=== PATIENT | female | born 1990 | race Hispanic/Latino ===

== ENCOUNTER 2017-12-26 13:09 | Emergency (ER) | payer SELFPAY ==
[2017-12-26 14:59] LABS: Absolute Lymphocytes (CBC) 2.7 K/uL (0.7-4.9); Absolute Monocytes 0.8 K/uL (0.1-1.3); Absolute Neutrophil 10.1 K/uL (1.8-8.0); Basophils % 0.3 % (0-1.3); Eosinophils % 0.7 % (0-4.4); Hematocrit 41.7 % (36.0-45.0); Lymphocytes % 19.7 % (15.3-44.8); MCH 31.3 pg (27.0-35.0); MCV 92.9 fL (80-100); MPV 8.1 fL (7.6-11.3); Monocytes % 6.1 % (3.3-12.3); RBC Red Blood Cell Count 4.49 M/uL (3.86-4.86)
[2017-12-26 15:03] LABS: Bicarbonate 27 mEq/L (21-31); Glucose Level 89 mg/dL (65-120); Potassium 3.8 mEq/L (3.6-5.0); Sodium Level 136 mEq/L (135-145)
[2017-12-26 15:04] LABS: Protime INR 1.01
--- NOTE | 2017-12-26 15:08 | RAD REPORT ---
EXAM DESCRIPTION: CT - Head Brain Wo Cont - 12/26/2017 2:44 pm CLINICAL HISTORY: Headache, hypotension COMPARISON: None. TECHNIQUE: Axial 5 mm thick images of the head were obtained without IV contrast. All CT scans are performed using dose optimization technique as appropriate and may include automated exposure control or mA/KV adjustment according to patient size. FINDINGS: No intracranial hemorrhage, mass, edema or shift of mid-line structures. No acute infarcti on changes seen. No abnormal extra-axial fluid collections. Ventricles are normal. Mastoid air cells and visualized portions of the paranasal sinuses are clear. No acute bony findings. IMPRESSION: Negative non-contrast CT head examination.
[2017-12-26 15:09] LABS: ALT/SGPT 28 IU/L (10-60); AST/SGOT 26 IU/L (10-42); Albumin 4.6 g/dL (3.2-5.5); Alkaline Phosphatase 120 IU/L (42-121); BUN Blood Urea Nitrogen 12 mg/dL (6-20); Bilirubin Direct < 0.1 mg/dL (0-0.2); Bilirubin Total 0.6 mg/dL (0.3-1.2); Creatine Phosphokinase 65 IU/L (22-269); Magnesium 1.7 mg/dL (1.8-2.5); Protein, Total 8.1 g/dL (6.0-8.3)
[2017-12-26 15:13] LABS: CKMB Creatine Kinase MB 1.6 ng/ml (0.3-4.0)
--- NOTE | 2017-12-26 15:20 | RAD REPORT ---
EXAM DESCRIPTION: RAD - Chest Single View - 12/26/2017 2:34 pm CLINICAL HISTORY: Cough, shortness of breath COMPARISON: April 2017 TECHNIQUE: AP portable chest image was obtained 1421 hours . FINDINGS: Lungs are clear. Heart and vasculature are normal. No measurable pleural effusion and no p neumothorax. No gross bony abnormality seen. No acute aortic findings suspected. IMPRESSION: No acute cardiopulmonary process. No significant interval change.
--- NOTE | 2017-12-26 15:30 | EDPHYS ---
Physician Documentation [facility] Name: Chelly Butcher Age: 27 yrs Sex: Female : 1990 Arrival Date: 12/26/2017 Time: 13:12 Bed 6 Private MD: None, None ED Physician Darrian Ryan HPI: 12/26 15:25 This 27 yrs old Female presents to ER via Ambulatory with complaints of yudi Headache, Blood Pressure Problem. 15:25 The patient complains of pain to the forehead, left temporal area and right temporal yudi area. The patient describes the headache as waxing and waning. Onset: The symptoms/episode began/occurred 2 day(s) ago. Associated signs and symptoms: The patient has no apparent associated signs or symptoms. Severity of symptoms: At its worst the pain was mild, in the emergency department the pain is unchanged. Headache History: Denies prior headaches. The symptoms are alleviated by. The patient has not experienced similar symptoms in the past. 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 - Social history:: Smoking status: Patient/guardian denies using tobacco. - Family history:: not pertinent. ROS: 15:25 Constitutional: Negative for fever, chills, and weight loss, Eyes: Negative for injury, yudi pain, redness, and discharge, ENT: Negative for injury, pain, and discharge, Neck: Negative for injury, pain, and swelling, Cardiovascular: Negative for chest pain, palpitations, and edema, Respiratory: Negative for shortness of breath, cough, wheezing, and pleuritic chest pain, Abdomen/GI: Negative for abdominal pain, nausea, vomiting, diarrhea, and constipation, Back: Negative for injury and pain, : Negative for injury, bleeding, discharge, and swelling, MS/Extremity: Negative for injury and deformity, Skin: Negative for injury, rash, and discoloration, Psych: Negative for depression, anxiety, suicide ideation, homicidal ideation, and hallucinations, Allergy/Immunology: Negative for hives, rash, and allergies, Endocrine: Negative for neck swelling, polydipsia, polyuria, polyphagia, and marked weight changes, Hematologic/Lymphatic: Negative for swollen nodes, abnormal bleeding, and unusual bruising. 15:25 Neuro: Positive for headache. Exam: 15:25 Constitutional: This is a well developed, well nourished patient who is awake, alert, yudi and in no acute distress. Head/Face: Normocephalic, atraumatic. Eyes: Pupils equal round and reactive to light, extra-ocular motions intact. Lids and lashes normal. Conjunctiva and sclera are non-icteric and not injected. Cornea within normal limits. Periorbital areas with no swelling, redness, or edema. ENT: Nares patent. No nasal discharge, no septal abnormalities noted. Tympanic membranes are normal and external auditory canals are clear. Oropharynx with no redness, swelling, or masses, exudates, or evidence of obstruction, uvula midline. Mucous membranes moist. Neck: Trachea midline, no thyromegaly or masses palpated, and no cervical lymphadenopathy. Supple, full range of motion without nuchal rigidity, or vertebral point tenderness. No Meningismus. Chest/axilla: Normal chest wall appearance and motion. Nontender with no deformity. No lesions are appreciated. Cardiovascular: Regular rate and rhythm with a normal S1 and S2. No gallops, murmurs, or rubs. Normal PMI, no JVD. No pulse deficits. Respiratory: Lungs have equal breath sounds bilaterally, clear to auscultation and percussion. No rales, rhonchi or wheezes noted. No increased work of breathing, no retractions or nasal flaring. Abdomen/GI: Soft, non-tender, with normal bowel sounds. No distension or tympany. No guarding or rebound. No evidence of tenderness throughout. Back: No spinal tenderness. No costovertebral tenderness. Full range of motion. Skin: Warm, dry with normal turgor. Normal color with no rashes, no lesions, and no evidence of cellulitis. MS/ Extremity: Pulses equal, no cyanosis. Neurovascular intact. Full, normal range of motion. Neuro: Awake and alert, GCS 15, oriented to person, place, time, and situation. Cranial nerves II-XII grossly intact. Motor strength 5/5 in all extremities. Sensory grossly intact. Cerebellar exam normal. Normal gait. Psych: Awake, alert, with orientation to person, place and time. Behavior, mood, and affect are within normal limits. 15:25 Neck: Thyroid: appears normal, no acute changes, Trachea: is midline with no obvious abnormalities, ROM/movement: is normal, no acute changes, Meningeal signs: are not present, Kernig's sign is negative, Brudzinski's sign is negative, Lymph nodes: no appreciated lymphadenopathy. Vital Signs: 13:19 BP 135 / 82; Pulse 69; Resp 16; Temp 98.4(TE); Pulse Ox 99% on R/A; Weight 77.11 kg; iw Height 5 ft. 2 in. (157.48 cm); Pain 5/10; 14:05 BP 132 / 86; Pulse 65; Resp 16 S; Pulse Ox 99% on R/A; Pain 3/10; jl7 14:15 BP 138 / 80 Supine; Pulse 62; Resp 16; Pulse Ox 100% ; jl7 14:17 BP 142 / 83 Sitting; Pulse 62; Resp 16; Pulse Ox 99% ; jl7 14:19 BP 144 / 89 Standing; Pulse 68; Resp 16; Pulse Ox 98% ; jl7 15:09 BP 128 / 73; Pulse 66; Resp 16 S; Pulse Ox 95% on R/A; jl7 15:20 BP 118 / 70; Pulse 64; Resp 18 S; Pulse Ox 100% on R/A; jl7 16:00 BP 110 / 65; Pulse 67; Resp 16; Pulse Ox 96% ; jl7 16:29 BP 124 / 69; Pulse 71; Resp 18; Pulse Ox 100% ; jl7 13:19 Body Mass Index 31.09 (77.11 kg, 157.48 cm) iw MDM: 14:07 Patient medically screened. [facility] 15:25 Data reviewed: vital signs, nurses notes, lab test result(s), EKG, radiologic studies, [facility] CT scan, plain films. 12/26 14:09 Order name: Basic Metabolic Panel; Complete Time: 15: [facility] 12/26 14:09 Order name: BNP; Complete Time: 15: [facility] 12/26 14:09 Order name: CBC with Diff; Complete Time: 15: [facility] 12/26 14:09 Order name: Ckmb; Complete Time: 15: [facility] 12/26 14:09 Order name: CPK; Complete Time: : 12/26 14:09 Order name: LFT's; Complete Time: 15:22 12/26 14:09 Order name: Magnesium; Complete Time: 15:12/26 14:09 Order name: PT-INR; Complete Time: 15:12/26 14:09 Order name: Ptt, Activated; Complete Time: 15:22 12/26 14:09 Order name: Troponin (emerg Dept Use Only); Complete Time: 15:12/26 14:09 Order name: XRAY Chest (1 view); Complete Time: 15:12/26 14:09 Order name: Urine Culture 12/26 15:28 Order name: Urine Dipstick--Ancillary (enter results) 12/26 15:28 Order name: Urine --Ancillary (enter results) 12/26 14:09 Order name: Urine Test (obtain specimen); Complete Time: 14:29 12/26 14:09 Order name: EKG; Complete Time: 14:09 12/26 14:09 Order name: Cardiac monitoring; Complete Time: 14:25 12/26 14:09 Order name: EKG - Nurse/Tech; Complete Time: 14:28 12/26 14:09 Order name: IV Saline Lock; Complete Time: 14:43 12/26 14:09 Order name: Labs collected and sent; Complete Time: 14:43 12/26 14:09 Order name: O2 Per Protocol; Complete Time: 14:29 12/26 14:09 Order name: O2 Sat Monitoring; Complete Time: 14:29 12/26 14:09 Order name: Urine Dipstick-Ancillary (obtain specimen); Complete Time: 14:29 12/26 14:09 Order name: CT Head Brain wo Cont; Complete Time: 15:22 12/26 15:34 Order name: Orthostatics; Complete Time: 15:44 [facility] Administered Medications: 15:49 Drug: Magnesium Sulfate 1 grams Route: IVPB; Infused Over: 1 hrs; Site: right jl7 antecubital; 17:22 Follow up: IV Status: Completed infusion jl7 15:49 Drug: NS 0.9% 1000 ml Route: IV; Rate: 1 bolus; Site: right antecubital; jl7 17:21 Follow up: IV Status: Completed infusion jl7 Disposition: 12/26/17 15:30 Discharged to Home. Impression: Headache, Weakness, Hypomagnesemia, Elevated white blood cell count. - Condition is Stable. - Discharge Instructions: General Headache Without Cause, Hypomagnesemia, Weakness, Fatigue, Near-Syncope, Jnma-da-Knwy, Weakness, Hhak-xh-[id number], General Headache Without Cause, Wyqk-sj-Rjup. - Medication Reconciliation Form, Thank You Letter, Antibiotic Education, Prescription Opioid Use form. - Work release form (12/26/17 17:26). iw - Follow up: Private Physician; When: 2 - 3 days; Reason: Recheck today's complaints, Continuance of care, Re-evaluation by your physician. Follow up: Ivonne Talavera MD; When: 2 - 3 days; Reason: Recheck today's complaints, Continuance of care, Re-evaluation by your physician. Follow up: Derek Nelson MD; When: 2 - 3 days; Reason: Recheck today's complaints, Re-evaluation by your physician. - Problem is new. - Symptoms have improved. Signatures: Dispatcher [employer] Darrian House MD MD cha Williams, Irene, RN RN iw Arnaldo Corado RN RN jl7
--- NOTE | 2017-12-26 15:30 | ER ---
Nurse's Notes [facility] Name: Chelly Butcher Age: 27 yrs Sex: Female : 1990 Arrival Date: 12/26/2017 Time: 13:12 Bed 6 Private MD: None, None Diagnosis: Headache;Weakness;Hypomagnesemia;Elevated white blood cell count Presentation: 12/26 13:16 Presenting complaint: Patient states: has been feeling faint, having low BP readings, iw has happened 3 times over past 2 weeks, today she had an episode of weakness, headache, had BP of 144 today, took anxiety pill today and Aleve for headache. Transition of care: patient was not received from another setting of care. Onset of symptoms was December 26, 2017. Initial Sepsis Screen: Does the patient meet any 2 criteria? No. Patient's initial sepsis screen is negative. Does the patient have a suspected source of infection? No. Patient's initial sepsis screen is negative. Care prior to arrival: None. 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 - Social history:: Smoking status: Patient/guardian denies using tobacco. - Family history:: not pertinent. Screenin:05 Abuse screen: Denies threats or abuse. Denies injuries from another. Nutritional jl7 screening: No deficits noted. Tuberculosis screening: No symptoms or risk factors identified. Fall Risk IV access (20 points). Total Valencia Fall Scale indicates No Risk (0-24 pts). Assessment: 14:05 General: Appears in no apparent distress. uncomfortable, Behavior is calm, cooperative, jl7 appropriate for age. Pain: Complains of pain in headache Pain does not radiate. Pain currently is 3 out of 10 on a pain scale. Quality of pain is described as "It just hurts." Pain began 1 day ago. Is continuous. Neuro: Level of Consciousness is awake, alert, obeys commands, Oriented to person, place, time, situation, Moves all extremities. Gait is steady, Speech is normal, Facial symmetry appears normal. Cardiovascular: Denies chest pain, Heart tones S1 S2 present Patient's skin is warm and dry. Respiratory: Airway is patent Respiratory effort is even, unlabored, Respiratory pattern is regular, symmetrical, Denies shortness of breath. GI: Patient currently denies diarrhea, nausea, vomiting. : No signs and/or symptoms were reported regarding the genitourinary system. EENT: No signs and/or symptoms were reported regarding the EENT system. Derm: Skin is pink, warm \\T\\ dry. Musculoskeletal: No signs and/or symptoms reported regarding the musculoskeletal system. Range of motion: intact in all extremities. 15:00 Reassessment: No changes from previously documented assessment. Patient and/or family jl7 updated on plan of care and expected duration. Pain level reassessed. Patient is alert, oriented x 3, equal unlabored respirations, skin warm/dry/pink. 15:50 Reassessment: pt has Magnesiumm infusion going at this time, will be discharged upon jl7 completion. 17:00 Reassessment: No changes from previously documented assessment. Patient and/or family jl7 updated on plan of care and expected duration. Pain level reassessed. Patient is alert, oriented x 3, equal unlabored respirations, skin warm/dry/pink. Vital Signs: 13:19 BP 135 / 82; Pulse 69; Resp 16; Temp 98.4(TE); Pulse Ox 99% on R/A; Weight 77.11 kg; iw Height 5 ft. 2 in. (157.48 cm); Pain 5/10; 14:05 BP 132 / 86; Pulse 65; Resp 16 S; Pulse Ox 99% on R/A; Pain 3/10; jl7 14:15 BP 138 / 80 Supine; Pulse 62; Resp 16; Pulse Ox 100% ; jl7 14:17 BP 142 / 83 Sitting; Pulse 62; Resp 16; Pulse Ox 99% ; jl7 14:19 BP 144 / 89 Standing; Pulse 68; Resp 16; Pulse Ox 98% ; jl7 15:09 BP 128 / 73; Pulse 66; Resp 16 S; Pulse Ox 95% on R/A; jl7 15:20 BP 118 / 70; Pulse 64; Resp 18 S; Pulse Ox 100% on R/A; jl7 16:00 BP 110 / 65; Pulse 67; Resp 16; Pulse Ox 96% ; jl7 16:29 BP 124 / 69; Pulse 71; Resp 18; Pulse Ox 100% ; jl7 13:19 Body Mass Index 31.09 (77.11 kg, 157.48 cm) iw ED Course: 13:12 Patient arrived in ED. mr 13:12 None, None is Private Physician. mr 13:19 Triage completed. iw 13:19 Arm band placed on. iw 14:03 Arnaldo Corado, RN is Primary Nurse. jl7 14:05 Patient has correct armband on for positive identification. Placed in gown. Bed in low jl7 position. Call light in reach. Side rails up X 1. green coffee blender on. Pulse ox on. NIBP on. Warm blanket given. 14:07 Darrian Ryan MD is Attending Physician. yudi 14:10 Initial lab(s) drawn, by nm, sent to lab. Urine collected: clean catch specimen, clear. jl7 Inserted saline lock: 20 gauge in right antecubital area, using aseptic technique. Blood collected. 14:30 X-ray completed. Portable x-ray completed in exam room. Patient tolerated procedure kw1 well. 14:32 XRAY Chest (1 view) In Process Unspecified. EDMS 14:[address] via wheelchair. vm2 14:45 CT Head Brain wo Cont In Process Unspecified. EDMS 15:29 Ivonne Talavera MD is Referral Physician. yudi 15:31 Derek Nelson MD is Referral Physician. yudi 15:52 EKG done, by human service technician. reviewed by Darrian Ryan MD. at1 17:22 No provider procedures requiring assistance completed. IV discontinued, intact, jl7 bleeding controlled, No redness/swelling at site. Pressure dressing applied. Administered Medications: 15:49 Drug: Magnesium Sulfate 1 grams Route: IVPB; Infused Over: 1 hrs; Site: right jl7 antecubital; 17:22 Follow up: IV Status: Completed infusion jl7 15:49 Drug: NS 0.9% 1000 ml Route: IV; Rate: 1 bolus; Site: right antecubital; jl7 17:21 Follow up: IV Status: Completed infusion jl7 Outcome: 15:30 Discharge ordered by . yudi 17:22 Discharged to home ambulatory. jl7 17:22 Condition: stable 17:22 Discharge instructions given to patient, family, Instructed on discharge instructions, follow up and referral plans. Demonstrated understanding of instructions, follow-up care. 17:23 Patient left the ED. jl7 Signatures: Dispatcher [employer] EDDarrian Das MD MD cha Rivera, Maria Zeenat Carpenter, RN RN iw Clair borjas, currency examiner EKG Tat1 Arnaldo Corado RN RN jl7 Karlee Kim 2 Sabi Hassan kw1 Corrections: (The following items were deleted from the chart) 14:41 14:38 General: Appears in no apparent distress. uncomfortable, Behavior is calm, jl7 cooperative, appropriate for age, jl7 14: 14:38 Pain: Complains of pain in headache Pain does not radiate. Pain currently is 3 jl7 out of 10 on a pain scale. Quality of pain is described as "It just hurts." Pain began 1 day ago. Is continuous, jl7 14: 14:38 Neuro: Level of Consciousness is awake, alert, obeys commands, Oriented to jl7 person, place, time, situation, Moves all extremities. Gait is steady, Speech is normal, Facial symmetry appears normal, jl7 14: 14:38 Cardiovascular: Denies chest pain, Heart tones S1 S2 present Patient's skin is jl7 warm and dry. jl7 14: 14:38 Respiratory: Airway is patent Respiratory effort is even, unlabored, Respiratory jl7 pattern is regular, symmetrical, Denies shortness of breath jl7 14: 14:38 GI: Patient currently denies diarrhea, nausea, vomiting, jl7 jl7 14: 14:38 : No signs and/or symptoms were reported regarding the genitourinary system. [id number] 14: 14:38 EENT: No signs and/or symptoms were reported regarding the EENT system. jl7 jl7 14: 14:38 Derm: Skin is pink, warm \\T\\ dry. jl7 jl7 14: 14:38 Musculoskeletal: No signs and/or symptoms reported regarding the musculoskeletal jl7 system. Range of motion: intact in all extremities, jl7
[2017-12-26] MEDS ORDERED: NA CHLORIDE 0.9% 1,000 ML ONE (15:45)
[2017-12-26 15:46] LABS: Urine Blood NEGATIVE (NEG); Urine Glucose NEGATIVE (NEG); Urine Protein NEGATIVE (NEG); Urine Specific Gravity 1.015 (1.005-1.030); Urine pH 6.5 (5.0-7.0)
--- NOTE | 2017-12-26 16:34 | EKG ---
Test Date: 2017-12-26 Test Time: 15:34:52 [employer] Weaver: [place] MEASUREMENT RESULTS: Intervals: Rate: 62 TX: 170 QRSD: 82 QT: 386 QTc: 391 [place]: P: 15 TX: 170 QRS: 0 T: 25 INTERPRETIVE STATEMENTS: Normal sinus rhythm Normal ECG No previous ECG available for comparison Electronically Signed On 12-26-17 16:33:20 CDT by Chris Garduno
[2017-12-26 17:29] VITALS: TEMP 98.4
[2017-12-26 17:38] VITALS: BP 124/69; O2SAT 100
== END 2017-12-26 17:23 | disposition home or self-care (01) ==
LOC: ER 13:09
DX: R53.1 Weakness (principal); E83.42 Hypomagnesemia; D72.829 Elevated white blood cell count, unspecified
CPT/HCPCS: 36415; 70450; 71045; 80048; 80076; 81003; 81025; 82550; 82553; 83735; 83880; 84484; 85025; 85610; 85730; 87086; 87088; 93005; 96365; 96366; 99285; J7030

== ENCOUNTER 2021-10-22 11:25 | Emergency (ER) | payer BC ==
--- OUTSIDE RECORDS SUMMARY | 2021-10-22 11:30 | XMS REPORT | Continuity of Care Document ---
:1990 Author Organization [facility] t Address [address] [place] [address] Dr. [address]. [address] [place] [address] Care Team Providers Name Role Phone Pcp, Does Not Have A Primary Care Physician JEEVAN PINO Attending Clinician Unavailable FAITH LEDESMA Attending Clinician Unavailable JERAMIE ROWELL Attending Clinician Unavailable Nurse, Pob Immunization Attending Clinician Unavailable Jeramie Rowell DO Attending Clinician Paulo RN, T Attending Clinician Unavailable LEVAR Attending Clinician Unavailable Doctor Unassigned, Name Attending Clinician Unavailable Lab, Fam Pob I Attending Clinician Unavailable Anene STEREOTYPE FINISHER Attending Clinician ANENE Attending Clinician Unavailable Green STEREOTYPE FINISHER Attending Clinician GREEN Attending Clinician Unavailable JEEVAN PINO Admitting Clinician Unavailable Payers Payer Name Policy Type Policy Number Effective Date Expiration Date S [facility] [place] [id number] 2019 00:00:00 Problems Condition Condition Condition Status Onset Resolution Last Treating Co mments Source Name Details Category Date Date Treatment Clinician Date H/O: H/O: Disease Active Overview: Univer s 8-28 Formattin i ty of 00:00: g of this [place] 00 note Medical might be Branch different from the original. Medical records- IUP, [place]lig[place]. Primary low transvers e . Immune to Immune to Disease Active Uni vers varicella varicella 05-01 ity of 00:00: Medical Branch Not immune Not immune Disease Active Overview : Univers to rubella to rubella 05-01 Formattin ity of 00:00: g of this note Medical might be Branch different from the original. Equivocal . Give ppICD10 Diagnosis Term Flag Decorator Utility Supervisio Supervisio Disease Active Overview : Univers n of other n of other 05-01 Formattin ity of high-risk high-risk 00:00: g of this [place] 00 note Medi faustina might be Branch different from the original. ICD10 Diagnosis Term Flag Decorator Utility Nausea & Nausea & Disease Active Unive rs vomiting vomiting 04-27 ity of 00:00: Medical Branch Constipati Constipati Disease Active U nivers on on 04-27 ity of 00:00: Medical Branch Dysuria Dysuria Disease Active Overview: Univ ers 04-27 Formattin ity of 00:00: g of this note Medical might be Branch different from the original. Medical records received. DOS- [address] [facility]. Negative urine culture Acute low Acute low Disease Active Uni vers back pain back pain 04-27 ity of 00:00: Medical Branch Vaginal Vaginal Disease Active Overview: Univ ers leukorrhea leukorrhea 04-27 Formattin ity of 00:00: g of this note Medical might be Branch different from the original. ICD10 Diagnosis Term Flag Decorator Utility Dizziness Dizziness Disease Active Uni vers and and 04-27 ity of [place] History of History of Disease Active Overview : Univers gestationa gestationa 04-27 Formattin ity of l diabetes l diabetes 00:00: g of this [place] in prior in prior 00 note Medica l , , might be Branch currently currently different from the original. 1 hr gtt- 132.Medic al records- 8- IUP at oligo, AI diabetic History of History of Disease Active Overview : Univers hypertensi hypertensi 04-27 Formattin ity of on on 00:00: g of this [place] 00 note Medical might be Branch different from the original. Only during Headache Problem Active 2021-03-15 Mem oria (finding) 01:25:15 l Headache Familia n (finding) Active Problem 03/15/2021 [facility] Hyperlipid Problem Active 2021-03-15 M emoria emia 01:25:15 l (disorder) Familia n Hyperlipid emia (disorder) Active Problem 03/15/2021 [facility] Lumbar Problem Active 2021-03-15 Memor ia radiculopa 01:25:15 l thy Lumbar [place] (disorder) radiculopa thy (disorder) Active Problem 03/15/2021 [facility] Paresthesi Problem Active 2021-03-15 M emoria a 01:25:15 l (finding) Shlomo Paresthesi a (finding) Active Problem 03/15/2021 [facility] Allergies, Adverse Reactions, Alerts Allergy Allergy Status Severity Reaction(s) Onset Inactive Treating Comm ents Source Name Type Date Date Clinician NO KNOWN Drug Active Univers ALLERGIE Class ity of S [facility] Social History Social Habit Start Date Stop Date Quantity Comments Source Exposure to Yes [facility] SARS-CoV-2 [facility] (event) Branch Social History 2021-02-26 2021-02-26 [facility] Shira david 15:44:30 15:44:30 Alcohol intake 2019-02-03 2019-02-03 Current University of 00:00:00 00:00:00 non-drinker of [facility] alcohol Branch (finding) Tobacco use and 2013-04-27 2013-04-27 Never used Universit y of exposure 00:00:00 00:00:00 [facility] Sex Ass[birth year] At [birth year] Universit y of 00:00:00 00:00:00 [facility] Smoking Status Start Date Stop Date Source Never smoker [facility] Medications Ordered Filled Start Stop Current Ordering Indication Dosage Frequency Signature Comments Components Source Medication Medication Date Date Medication? Clinician (SIG) Name Name Non-Formula Yes anxio Memor ia ry Home 6-24 calm, l Medication 15:47: Refill(s) He rmann 00 0 atorvastati Yes 0 Memori a n 20 mg 6-24 Refill(s) l oral tablet 15:45: Familia n 00 Vitamin D3 Yes 0 Memoria 50,000 intl 6-24 Refill(s) l units oral 15:45: Shlomo capsule 00 amoxicillin No 0 Memori a 500 mg oral 6-24 Refill(s) l tablet 15:45: Shlomo 00 ibuprofen Yes 0 Memoria 800 mg oral 6-24 Refill(s) l tablet 15:45: Shlomo 00 gabapentin Yes 100 mg = 1 M emoria 100 MG Oral 6-24 cap, 0 l Capsule 15:44: Refill(s) Mignon nn 00 proMETHazin Yes [id number] 25mg Take 1 Tab Univers e 8-23 by mouth ity of (PHENERGAN) 00:00: every 4 Malcolm as 25 mg 00 (four) Medical tablet hours as Branch needed for Nausea and Vomiting (N/V). Yes 1{tbl} Take 1 Tab U nivers multivitami 8-23 by mouth ity of n ( 00:00[place]. [place] VITAMIN[place] 00 Medical tablet Branch proMETHazin Yes [id number] 25mg Take 1 Tab Univers e 8-23 by mouth ity of (PHENERGAN) 00:00: every 4 Malcolm as 25 mg 00 (four) Medical tablet hours as Branch needed for Nausea and Vomiting (N/V). Yes 1{tbl} Take 1 Tab U nivers multivitami 8-23 by mouth ity of n ( 00:00[place]. [place] VITAMIN[place] 00 Medical tablet Branch proMETHazin Yes [id number] 25mg Take 1 Tab Univers e 8-23 by mouth ity of (PHENERGAN) 00:00: every 4 Malcolm as 25 mg 00 (four) Medical tablet hours as Branch needed for Nausea and Vomiting (N/V). Yes 1{tbl} Take 1 Tab U nivers multivitami 8-23 by mouth ity of n ( 00:00: [place]. [place] VITAMIN[place] 00 Medical tablet Branch proMETHazin Yes [id number] 25mg Take 1 Tab Univers e 8-23 by mouth ity of (PHENERGAN) 00:00: every 4 Malcolm as 25 mg 00 (four) Medical tablet hours as Branch needed for Nausea and Vomiting (N/V). Yes 1{tbl} Take 1 Tab U nivers multivitami 8-23 by mouth ity of n ( 00:00: [place]. [place] VITAMIN[place] 00 Medical tablet Branch proMETHazin Yes [id number] 25mg Take 1 Tab Univers e 8-23 by mouth ity of (PHENERGAN) 00:00: every 4 [place] as 25 mg 00 (four) Medical tablet hours as Branch needed for Nausea and Vomiting (N/V). Yes 1{tbl} Take 1 Tab U nivers multivitami 8-23 by mouth ity of n ( 00:00: [place]. [place] VITAMIN[place] 00 Medical tablet Branch proMETHazin Yes [id number] 25mg Take 1 Tab Univers e 8-23 by mouth ity of (PHENERGAN) 00:00: every 4 [place] as 25 mg 00 (four) Medical tablet hours as Branch needed for Nausea and Vomiting (N/V). Yes 1{tbl} Take 1 Tab U nivers multivitami 8-23 by mouth ity of n ( 00:00: [place]. [place] VITAMIN) 00 Medical tablet Branch proMETHazin Yes [id number] 25mg Take 1 Tab Univers e 8-23 by mouth ity of (PHENERGAN) 00:00: every 4 [place] as 25 mg 00 (four) Medical tablet hours as Branch needed for Nausea and Vomiting (N/V). Yes 1{tbl} Take 1 Tab U nivers multivitami 8-23 by mouth ity of n ( 00:00: [place]. [place] VITAMIN[place] 00 Medical tablet Branch Immunizations Ordered Filled Immunization Date Status Comments [facility] e Immunization Name Name SARS-COV-2 COVID-19 2021-09-15 Completed [facility] BOOSTER 00:00:00 [facility] VACCINE Branch Td 2007-09-05 Completed [facility] 00:00:00 [place] [facility] Td 2007-09-05 Completed [facility] 00:00:00 [place] [facility] Td 2007-09-05 Completed [facility] 00:00:00 [place] [facility] Td 2007-09-05 Completed [place] [facility] 00:00:00 [facility] Td 2007-09-05 Completed University 00:00:00 [facility] Td 2007-09-05 Completed University 00:00:00 [facility] Td 2007-09-05 Completed [facility] 00:00:00 [facility] Vital Signs Vital Name Observation Time Observation Value Comments Source Systolic (mm Hg) 2021-03-12 13:32:00 Philip rial Shlomo Diastolic (mm Hg) 2021-03-12 13:32:00 Mem orial [place] Heart Rate 2021-03-12 13:32:00 [facility] [place] Respitory Rate 2021-03-12 13:32:00 Memori al [place] Height 2021-03-12 13:32:00 152.4 cm [facility] [place] Weight 2021-03-12 13:32:00 [facility] [place] BMI Calculated 2021-03-12 13:32:00 Memori al [place] Systolic (mm Hg) 2021-02-26 15:40:00 Philip rial [place] Diastolic (mm Hg) 2021-02-26 15:40:00 Mem orial [place] Heart Rate 2021-02-26 15:40:00 [facility] [place] Respitory Rate 2021-02-26 15:40:00 Memori al [place] Height 2021-02-26 15:40:00 154.94 cm [facility] [place] Weight 2021-02-26 15:40:00 [facility] [place] BMI Calculated 2021-02-26 15:40:00 Memori al [place] Procedures Procedure Date / Time Performed Performing Clinician [facility] e SARS-COV-2 COVID-19 2021-09-15 23:07:10 [facility] BOOSTER,0.25ML,IM (MODERNA) ASSIGNMENT OF BENEFITS 2021-04-27 20:31:37 Doctor Unassigned, No [facility] Appendix operation [facility] Encounters Start End Encounter Admission Attending Care Care Encounter Source Date/Time Date/Time Type Type Clinicians Facility Department ID 2021-10-13 2021-10-13 Outpatient GREER PINO [facility] [id number] [facility] 14:28:00 23:59:00 2021-10-02 2021-10-07 Inpatient NICANOR [facility] MED [id number] [facility] 05:05:00 18:36:00 HUSSEIN SANCHEZ 2021-09-15 2021-09-15 Outpatient R CARLA [facility] [id number] Univers 16:10:00 16:10:00 SWAPNIL gaffney [facility] 2021-09-15 2021-09-15 Imm/Inj Nurse, Adc Pob Immunization [facility] [id number] Univers 16:10:00 16:10:00 Visit Swapnil Rowell [id number] ity [facility] [id number] [place] PROFESSIO [phone] In dic[address] 2021-04-29 2021-04-29 Letter GREER Bates [id number] Univers 00:00:00 00:00:00 (Out) Hailey MAC [id number] it y of [facility] [id number] [place] as [id number] [facility] 019 [place] 2021-04-27 2021-04-27 Outpatient R [facility] [id number] Univers 15:30:00 15:30:00 [id number] ity of [facility] 2021-04-27 2021-04-27 [facility] [id number] Univers 15:30:00 15:30:00 DIOMEDES gaffney o f [facility] 2021-04-27 2021-04-27 Orders Doctor [place] [id number] Univers 00:00:00 00:00:00 Only Unassigned, BUBBA [id number] ity of [place] [facility] [id number] Malcolm as [phone] [facility] 009 Branch 2021-04-16 2021-04-16 Outpatient MHIE LORENE [id number] Memoria 16:00:00 16:00:00 02 l Shlomo 2021-03-12 2021-03-13 Outpatient nullFlavo MNA [id number] Memoria 13:15:00 04:59:59 r Neurology 01 l Nancy Keenan 2021-02-26 2021-02-27 Outpatient nullFlavo MNA [id number] Memoria 15:30:00 04:59:59 r Neurology 00 l Dalzellsarahi Guerraann 2020-07-21 2020-07-21 Laboratory Lab, [facility] Pob I [facility] 1.2. [id number] Univers 13:18:56 13:29:14 Only [facility] [id number] ity of [place] [id number] Malcolm as Professio [phone] In dical nal 044 [facility] 2020-07-21 2020-07-21 Outpatient R [facility] [id number] Univers 13:20:00 13:20:00 [id number] [facility] 2020-07-21 2020-07-21 Outpatient R PATRICK [facility] [id number] Univers 13:20:00 13:20:00 VELMA gaffney [facility] 2020-05-12 2020-05-12 [facility] 1.. 840.114 [id number] Univers 13:44:51 14:04:51 Only Sherley Mcgraw [employer] [id number] ity of [place] [id number] Malcolm as Professio [phone] In dical nal 044 [facility] 2020-05-12 2020-05-12 Outpatient R [facility] [id number] Univers 13:40:00 13:40:00 [id number] ity [facility] 2020-05-12 2020-05-12 Outpatient R NICKY [facility] [id number] Univers 13:40:00 13:40:00 SHERLEY ity [facility] 2020-04-05 2020-04-05 Outpatient O PATRICK [facility] [id number] Univers 15:40:00 15:40:00 VELMA deandre [facility] 2020-04-05 2020-04-05 [facility] 1.2. 840.114 [id number] Univers 15:17:51 15:37:51 Only [facility] [id number] ity of [place] [id number] Malcolm as Professio [phone] In dical nal 044 Branch Office Building One Results This patient has no known results.
[2021-10-22 12:30] LABS: Protime INR 1.11
[2021-10-22 12:33] LABS: Absolute Lymphocytes (CBC) 0.6 K/uL (0.7-4.9); Hematocrit 33.6 % (36.0-45.0); Lymphocytes % 7.2 % (15.3-44.8); MPV 7.3 fL (7.6-11.3); RBC Red Blood Cell Count 3.63 M/uL (3.86-4.86)
--- NOTE | 2021-10-22 12:41 | RAD REPORT ---
EXAM DESCRIPTION: RAD - Chest Single View - 10/22/2021 12:24 pm CLINICAL HISTORY: Weakness COMPARISON: Chest Single View dated 12/26/2017; Chest Single View dated 04/18/2017; Chest For Pe Angio dated 04/18/2017 FINDINGS: Lines: None. Lungs: No evidence of edema or pneumonia. Pleural: No significant pleural effusions or pneumothorax. Cardiac: The heart size is within normal limits. Bones: No acute fractures. Other: IMPRESSION: No acute cardiopulmonary disease.
[2021-10-22 12:43] LABS: ALT/SGPT 55 U/L (12-78); AST/SGOT 34 U/L (15-37); Albumin 3.5 g/dL (3.4-5.0); Alkaline Phosphatase 157 U/L (45-117); BUN Blood Urea Nitrogen 7 mg/dL (7-18); Bicarbonate 27 mmol/L (21-32); Bilirubin Direct 0.1 mg/dL (0-0.2); Bilirubin Total 0.3 mg/dL (0.2-1.0); Glucose Level 120 mg/dL (74-106); Magnesium 2.1 mg/dL (1.8-2.4); NT PRO-BNP 18 pg/mL (<125); Potassium 4.1 mmol/L (3.5-5.1); Protein, Total 7.8 g/dL (6.4-8.2); Sodium Level 136 mmol/L (136-145)
[2021-10-22 12:56] LABS: Troponin High Sensitivity < 3.00 pg/mL (<58.9)
[2021-10-22 13:31] LABS: SARS-COV-2 RT PCR NEGATIVE (NEGATIVE)
--- NOTE | 2021-10-22 14:07 | ER ---
Nurse's Notes [facility] Name: Chelly Butcher Age: 31 yrs Sex: Female : 1990 Arrival Date: 10/22/2021 Time: 11:29 Bed 11 Private MD: Piter Coyle Diagnosis: Weakness;Other malaise and fatigue Presentation: 10/22 11:49 Chief complaint: Patient states: she wasn't feeling well this morning, and she took her ap3 blood pressure. patient states her blood pressure was low. It is also reported patient had recent sx to remove part of her liver due to a tumor. Coronavirus screen: fatigue, weakness Client presents with at least one sign or symptom that may indicate coronavirus-19. Standard/surgical mask placed on the client. Provider contacted for isolation considerations. Ebola Screen: No symptoms or risks identified at this time. No acute neurological deficit is noted. Pre-hospital glucose is not applicable to this patient. Initial Sepsis Screen: Does the patient meet any 2 criteria? HR > 90 bpm. Does the patient have a suspected source of infection? No. Patient's initial sepsis screen is negative. Risk Assessment: Do you want to hurt yourself or someone else? Patient reports no desire to harm self or others. Onset of symptoms was October 22, 2021. 11:49 Method Of Arrival: Ambulatory ap3 11:49 Acuity: MARS 3 ap3 Triage Assessment: 11:52 The onset of the patients symptoms was October 22, 2021 at 09:00. General: Appears ap3 uncomfortable, Behavior is calm, cooperative. General: Reports feeling ill for fatigue for. Pain: Denies pain. Neuro: Level of Consciousness is awake, alert, obeys commands, Oriented to person, place, time, situation, Appropriate for age Gait is steady, Speech is normal, Reports weakness since 0900. Cardiovascular: Patient's skin is warm and dry. Respiratory: Airway is patent Respiratory effort is even, unlabored, Respiratory pattern is regular, symmetrical. Musculoskeletal: Reports weakness in generalized weakness. MEDICAL WRITER: 11:54 LMP 10/08/2021 ap3 Historical: - Allergies: 11:51 NKA; ap3 - Home Meds: 11:54 None [Active]; ap3 - PMHx: 11:51 Anxiety; Hypercholesterolemia; ap3 - PSHx: 11:51 partial liver removal; ap3 - Immunization history:: Client reports receiving the 2nd dose of the Covid vaccine, Flu vaccine is not up to date. - Social history:: Smoking status: Patient denies any tobacco usage or history of. Screenin:54 Abuse screen: Denies threats or abuse. Nutritional screening: No deficits noted. ap3 Tuberculosis screening: No symptoms or risk factors identified. 12:16 Fall Risk None identified. IV access (20 points). ss7 Assessment: 12:14 General: Appears in no apparent distress. uncomfortable, Behavior is calm, cooperative, ss7 appropriate for age. Neuro: No deficits noted. Cardiovascular: No deficits noted. Respiratory: Reports cough that is non-productive. 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 Bowel sounds present X 4 quads. Abdomen is tender to palpation X 4 quads. : No deficits noted. EENT: No deficits noted. Derm: No deficits noted. Wound noted abdomen Other: No active drainage or s/sx of infection. Musculoskeletal: No deficits noted. Vital Signs: 11:49 BP 130 / 81; Pulse 102; Resp 17; Temp 98.1; Pulse Ox 99% ; Weight 74.84 kg; Height 4 ap3 ft. 11 in. (149.86 cm); 13:15 BP 126 / 81 Supine; Pulse 87; Resp 16; Pulse Ox 99% on R/A; mh5 13:17 BP 124 / 76 Sitting; Pulse 87; Resp 16; Pulse Ox 99% on R/A; mh5 13:19 BP 126 / 82 Standing; Pulse 98; Resp 16; Pulse Ox 99% on R/A; mh5 14:35 BP 119 / 87; Pulse 79; Resp 18; Pulse Ox 98% on R/A; ss7 11:49 Body Mass Index 33.33 (74.84 kg, 149.86 cm) ap3 ED Course: 11:29 Patient arrived in ED. mr 11:30 Piter Coyle MD is Private Physician. mr 11:51 Triage completed. ap3 11:52 Jordan Jeffries MD is Attending Physician. kdr 11:54 Arm band placed on left wrist. ap3 12:16 Patient has correct armband on for positive identification. Call light in reach. Adult ss7 w/ patient. 12:16 No provider procedures requiring assistance completed. Inserted saline lock: 20 gauge ss7 in right antecubital area, using aseptic technique. 12:23 XRAY Chest (1 view) In Process Unspecified. EDMS 12:25 Initial lab(s) drawn, by ED staff, sent to lab. EKG done, by ED staff, reviewed by [facility] Jordan Jeffries MD. 13:25 COVID-19/FLU A+B (Document "Date of Onset" if Symptomatic) Sent. cs9 14:05 Piter Coyle MD is Referral Physician. kdr Administered Medications: No medications were administered Outcome: 14:06 Discharge ordered by . kdr 14:41 Patient left the ED. [facility] Signatures: Dispatcher [employer] EDNV Jordan Jeffries MD MD kdr Michael, Nikole Oscar 5 Clair Byrne, RN RN ap3 Stephanie Seay 9 Cara Raymundo RN RN ss7 Corrections: (The following items were deleted from the chart) 11:52 11:51 Home Meds: Advil 200 mg Oral tab 1 tab every 6 hours; ap3 ap3 11:52 11:51 Home Meds: [place] anxiety medication unknown; ap3 ap3
--- NOTE | 2021-10-22 14:07 | EDPHYS ---
Physician Documentation [facility] Name: Chelly Butcher Age: 31 yrs Sex: Female : 1990 Arrival Date: 10/22/2021 Time: 11:29 Bed 11 Private MD: Piter Coyle ED Physician Jordan Jeffries HPI: 10/22 18:53 This 31 yrs old Female presents to ER via Ambulatory with complaints of Blood kdr Pressure Problem, Weakness. 18:53 The patient took her blood pressure this morning after feeling poorly for a few days. kdr She noted that her pressure was low. She has some general fatigue symptoms for the past week. 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 She denies any worsening pain in her abdomen, she generally just feels poorly. Onset: The symptoms/episode began/occurred gradually, 1 week(s) ago. Severity of symptoms: At their worst the symptoms were mild in the emergency department the symptoms are unchanged. The patient has not experienced similar symptoms in the past. The patient has been recently seen by a physician:. Patient is states that she has been generally fatigued for the period of time since her operation but today this morning, she became more weak and generally fatigued. She complains of generalized aches and upper respiratory symptoms.. 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 - Social history:: Smoking status: Patient denies any tobacco usage or history of. ROS: 18:53 Constitutional: Negative for fever, chills, and weight loss, she has had generalized kdr myalgias and arthralgias, flulike symptoms Eyes: Negative for injury, pain, redness, and discharge, ENT: Negative for injury, pain, and discharge, Neck: Negative for injury, pain, and swelling, Cardiovascular: Negative for chest pain, palpitations, and edema, Respiratory: Negative for shortness of breath, cough, wheezing, and pleuritic chest pain, Back: Negative for injury and pain, : Negative for injury, bleeding, discharge, and swelling, MS/Extremity: Negative for injury and deformity, Skin: Negative for injury, rash, and discoloration, Neuro: Negative for headache, weakness, numbness, tingling, and seizure activity. Psych: Negative for depression, anxiety, suicide ideation, homicidal ideation, and hallucinations, Allergy/Immunology: Negative for hives, rash, and allergies, Endocrine: Negative for neck swelling, polydipsia, polyuria, polyphagia, and marked weight changes, Hematologic/Lymphatic: Negative for swollen nodes, abnormal bleeding, and unusual bruising. 18:53 Abdomen/GI: Positive for And abdomen with a large scar that runs from the subxiphoid area down around the umbilicus and then extends laterally to the right. The wound appears to be healing well. There is no tympany or signs of obstruction.. Exam: 18:53 Constitutional: This is a well developed, well nourished patient who is awake, alert, kdr and in no acute distress. Head/Face: Normocephalic, atraumatic. Eyes: Pupils equal round and reactive to light, extra-ocular motions intact. Lids and lashes normal. Conjunctiva and sclera are non-icteric and not injected. Cornea within normal limits. Periorbital areas with no swelling, redness, or edema. Neck: Trachea midline, no thyromegaly or masses palpated, and no cervical lymphadenopathy. Supple, full range of motion without nuchal rigidity, or vertebral point tenderness. No Meningismus. Chest/axilla: Normal chest wall appearance and motion. Nontender with no deformity. No lesions are appreciated. Cardiovascular: Regular rate and rhythm with a normal S1 and S2. No gallops, murmurs, or rubs. Normal PMI, no JVD. No pulse deficits. Respiratory: Lungs have equal breath sounds bilaterally, clear to auscultation and percussion. No rales, rhonchi or wheezes noted. No increased work of breathing, no retractions or nasal flaring. Back: No spinal tenderness. No costovertebral tenderness. Full range of motion. Skin: Warm, dry with normal turgor. Normal color with no rashes, no lesions, and no evidence of cellulitis. 18:53 Abdomen/GI: Inspection: The abdomen is as described above. There is a vertical incision well-healing from subxiphoid to infraumbilical and then lateral to the right side is healing well and no signs of dehiscence. Abdomen is generally soft mildly tender but otherwise none acute. Vital Signs: 11:49 BP 130 / 81; Pulse 102; Resp 17; Temp 98.1; Pulse Ox 99% ; Weight 74.84 kg; Height 4 ap3 ft. 11 in. (149.86 cm); 13:15 BP 126 / 81 Supine; Pulse 87; Resp 16; Pulse Ox 99% on R/A; mh5 13:17 BP 124 / 76 Sitting; Pulse 87; Resp 16; Pulse Ox 99% on R/A; mh5 13:19 BP 126 / 82 Standing; Pulse 98; Resp 16; Pulse Ox 99% on R/A; mh5 14:35 BP 119 / 87; Pulse 79; Resp 18; Pulse Ox 98% on R/A; ss7 11:49 Body Mass Index 33.33 (74.84 kg, 149.86 cm) ap3 MDM: 14:06 Patient medically screened. kdr 18:53 Data reviewed: vital signs, nurses notes, lab test result(s), radiologic studies. kdr Counseling: I had a detailed discussion with the patient and/or guardian regarding: the historical points, exam findings, and any diagnostic results supporting the discharge/admit diagnosis, lab results, radiology results, the need for outpatient follow up. 10/22 11:56 Order name: COVID-19/FLU A+B (Document "Date of Onset" if Symptomatic); Complete Time: ap3 14:28 10/22 12:02 Order name: Basic Metabolic Panel; Complete Time: 13:11 kdr 10/22 12:02 Order name: CBC with Diff; Complete Time: 13:11 kdr 10/22 12:02 Order name: LFT's; Complete Time: 13:11 kdr 10/22 12:02 Order name: Magnesium; Complete Time: 13:11 kdr 10/22 12:02 Order name: NT PRO-BNP; Complete Time: 13:11 kdr 10/22 12:02 Order name: PT-INR; Complete Time: 13:11 kdr 10/22 12:02 Order name: Troponin HS; Complete Time: 13:11 kdr 10/22 12:02 Order name: XRAY Chest (1 view); Complete Time: 13:11 kdr 10/22 12:02 Order name: EKG; Complete Time: 12:03 kdr 10/22 12:02 Order name: Cardiac monitoring; Complete Time: 12:14 kdr 10/22 12:02 Order name: EKG - Nurse/Tech; Complete Time: 12:14 kdr 10/22 12:02 Order name: IV Saline Lock; Complete Time: 12:14 kdr 10/22 12:02 Order name: Labs collected and sent; Complete Time: 12: kdr 10/22 12:02 Order name: O2 Per Protocol; Complete Time: 12:14 kdr 10/22 12:02 Order name: O2 Sat Monitoring; Complete Time: 12: kdr 10/22 13:11 Order name: Orthostatic Blood Pressure; Complete Time: 13:33 kdr Administered Medications: No medications were administered Disposition Summary: 10/22/21 14:06 Discharge Ordered Location: Home kdr Problem: new kdr Symptoms: have improved kdr Condition: Stable kdr Diagnosis - Weakness kdr - Other malaise and fatigue kdr Followup: kdr - With: Piter Coyle MD - When: 2 - 3 days - Reason: If symptoms return, Further diagnostic work-up, Recheck today's complaints, Continuance of care, Re-evaluation by your physician Discharge Instructions: - Discharge Summary Sheet kdr - Fatigue kdr - Weakness, [id number] kdr - Managing Cancer-Related Fatigue kdr - Influenza, Adult, [id number] kdr Forms: - Medication Reconciliation Form kdr - Thank You Letter kdr Prescriptions: - Tamiflu 75 mg Oral Capsule - take 1 tablet by ORAL route every 12 hours for 5 days; 10 tablet; Refills: 0, kdr Product Selection Permitted Signatures: Dispatcher [employer] Jordan Ramos MD MD kdr Clair Byrne RN RN ap3 Corrections: (The following items were deleted from the chart) 11:52 11:51 Home Meds: Advil 200 mg Oral tab 1 tab every 6 hours; ap3 ap3 11:52 11:51 Home Meds: portuguese anxiety medication unknown; ap3 ap3
[2021-10-22 15:01] VITALS: TEMP 98.1
[2021-10-22 15:05] VITALS: BP 119/87; O2SAT 98
--- NOTE | 2021-10-23 13:07 | EKG ---
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
== END 2021-10-22 14:41 | disposition home or self-care (01) ==
LOC: ER 11:25
DX: J10.1 Influenza due to other identified influenza virus with other respiratory manifestations (principal); R53.81 Other malaise; R53.83 Other fatigue; Z20.822 Contact with and (suspected) exposure to COVID-19
CPT/HCPCS: 93005; 85025; 80048; 36415; 83735; 85610; 80076; 84484; 83880; 0240U; 71045; 99284